=== PATIENT | female | born 1995 | race Caucasian/White ===

== ENCOUNTER 2020-10-02 05:56 | Day surgery (SDC) | payer OTHER, SELFPAY ==
[~2020-10-02] VITALS: Ht 160 cm; Wt 86.2 kg
[2020-10-02] MEDS ORDERED: diphenhydrAMINE 50 MG/ML VIAL ONE (07:31)
[2020-10-02] MEDS ORDERED: fentaNYL citrate 0.05 MG/ML VIAL ONE (07:31)
[2020-10-02] MEDS ORDERED: MIDAZOLAM 5 MG/5 ML VIAL ONE (07:32)
[2020-10-02] MEDS ORDERED: fentaNYL citrate 0.05 MG/ML VIAL IVP ONE (09:30)
[2020-10-02] MEDS ORDERED: MIDAZOLAM 2 MG/2 ML VIAL IVP ONE (09:30)
[2020-10-02] MEDS ORDERED: diphenhydrAMINE 50 MG/ML VIAL IVP ONE (09:30)
== END 2020-10-02 09:15 | disposition home or self-care (01) ==
LOC: MDS 05:56 → MTU 06:15 → MFCC 06:20 → MDS 09:15
PROVIDERS: ATTEND Internal Medicine Gastroenterology
DX: R11.0 Nausea (principal); K44.9 Diaphragmatic hernia without obstruction or gangrene; K25.9 Gastric ulcer, unspecified as acute or chronic, without hemorrhage or perforation; Z79.899 Other long term (current) drug therapy; Z20.828 Contact with and (suspected) exposure to other viral communicable diseases
CPT/HCPCS: 43239; 81025; J1200; J2250; J3010; U0003

== ENCOUNTER 2020-12-11 07:39 | Day surgery (SDC) | payer OTHER, SELFPAY ==
[~2020-12-11] VITALS: Ht 160 cm; Wt 86.2 kg
[2020-12-11] MEDS ORDERED: fentaNYL citrate 0.05 MG/ML VIAL ONE (11:15)
[2020-12-11] MEDS ORDERED: diphenhydrAMINE 50 MG/ML VIAL ONE (11:15)
[2020-12-11] MEDS ORDERED: MIDAZOLAM 2 MG/2 ML VIAL ONE ×2 (11:15→11:25)
[2020-12-11] MEDS ORDERED: fentaNYL citrate 0.05 MG/ML VIAL IVP ONE (14:20)
[2020-12-11] MEDS ORDERED: MIDAZOLAM 2 MG/2 ML VIAL IVP ONE (14:20)
== END 2020-12-11 12:24 | disposition home or self-care (01) ==
LOC: MDS 07:39 → MMU 07:40 → MDS 12:24
PROVIDERS: ATTEND Internal Medicine Gastroenterology
DX: R11.2 Nausea with vomiting, unspecified (principal); K21.00 Gastro-esophageal reflux disease with esophagitis, without bleeding; Z20.828 Contact with and (suspected) exposure to other viral communicable diseases
CPT/HCPCS: 43235; 81025; J2250; J3010; U0003; J1200